=== PATIENT | female | born 1960 | race Caucasian/White ===

== ENCOUNTER 2024-06-09 20:55 | Emergency (ER) | payer OTHER, MEDICAID, MEDICARE ==
[2024-06-09] MEDS ORDERED: Sodium Chloride 0.9% 10 ML Syringe FLUSH PRN (22:05)
[2024-06-09 22:23] LABS: BASOPHILS ABSOLUTE AUTO 0.01 K/uL (0.00-0.20); BASOPHILS PERCENT AUTO 0.1 % (0.0-2.0); EOSINOPHILS ABSOLUTE AUTO 0.25 K/uL (0.00-0.50); EOSINOPHILS PERCENT AUTO 2.2 % (0.0-5.0); HEMATOCRIT 30.4 % (34.0-46.0); HEMOGLOBIN 9.4 g/dL (11.7-15.5); LYMPHOCYTES ABSOLUTE AUTO 2.29 K/uL (0.50-3.50); LYMPHOCYTES PERCENT AUTO 20.4 % (10.0-50.0); MEAN CORPUSCULAR HEMOGLOBIN 29.4 pg (28.2-33.3); MEAN CORPUSCULAR HGB CONC 30.9 g/dL (31.7-36.0); MONOCYTES ABSOLUTE AUTO 0.72 K/uL (0.00-1.00); MONOCYTES PERCENT AUTO 6.4 % (2.0-14.0); NEUTROPHILS ABSOLUTE AUTO 7.95 K/uL (1.40-7.00); NEUTROPHILS PERCENT AUTO 70.9 % (45.0-80.0); PLATELET COUNT,PLT 315 K/uL (150-350); RED CELL DISTRIBUTION WIDTH 15.6 % (11.2-14.1); WHITE BLOOD CELL COUNT,WBC 11.2 K/uL (4.0-10.2)
[2024-06-09 22:26] LABS: BILIRUBIN,URINE NEGATIVE (NEGATIVE); COLOR,URINE YELLOW; GLUCOSE,URINE NEGATIVE (NEGATIVE); KETONES,URINE TRACE mg/dL (NEGATIVE); LEUKOCYTE ESTERASE,URINE LARGE (NEGATIVE); NITRITE,URINE NEGATIVE (NEGATIVE); OCCULT BLOOD,URINE MODERATE (NEGATIVE); PROTEIN,URINE >=300 mg/dL (NEGATIVE); UROBILINOGEN,URINE 0.2 E.U./dL (0.2-1.0)
[2024-06-09 22:27] LABS: APPEARANCE,URINE SLIGHTLY CLOUDY
[2024-06-09 22:43] LABS: EPITHELIAL CELLS,URINE RARE /LPF; RBC,URINE 20-30 /HPF; WBC,URINE 75-100 /HPF
[2024-06-09 22:44] LABS: AMORPHOUS SEDIMENT,URINE MODERATE /HPF (0/HPF); BACTERIA,URINE MODERATE /HPF (NONE TO FEW); YEAST,URINE FEW /HPF (NEGATIVE)
[2024-06-09 22:48] LABS: ALANINE AMINOTRANSFERASE,ALT 11 U/L (12-78); ALBUMIN 2.9 g/dL (3.4-5.0); ALKALINE PHOSPHATASE 119 IU/L (46-116); ANION GAP 15.4 meq/L (7-15); ASPARTATE AMNIOTRANSFERASE,AST 16 U/L (15-37); BILIRUBIN TOTAL 0.3 mg/dL (0.2-1.0); BLOOD UREA NITROGEN,BUN 21 mg/dL (7-18); CALCIUM 9.3 mg/dL (8.5-10.1); CARBON DIOXIDE,CO2 22.8 mmol/L (21.0-32.0); CHLORIDE,CL 110 mmol/L (98-107); CREATININE 0.98 mg/dL (0.51-1.17); ESTIMATED GFR 65 mL/min (>=60); GLUCOSE RANDOM 124 mg/dL (70-99); POTASSIUM,K 4.2 mmol/L (3.5-5.1); PROTEIN TOTAL,TP 7.7 g/dL (6.4-8.2); SODIUM,NA 144 mmol/L (136-145)
[2024-06-09 23:20] LABS: PROTHROMBIN TIME 10.1 SEC (9.0-11.1)
[2024-06-09] MEDS ORDERED: cefTRIAXone 2 GM Vial IVPUSH SCH (23:30)
[2024-06-09 23:42] VITALS: BP 102/74; PULSE 74
== END 2024-06-10 00:05 ==
LOC: LL.ED 20:55
DX: R41.82 Altered mental status, unspecified (principal); N39.0 Urinary tract infection, site not specified; I10 Essential (primary) hypertension; E78.00 Pure hypercholesterolemia, unspecified; J44.9 Chronic obstructive pulmonary disease, unspecified; Z79.899 Other long term (current) drug therapy; Z79.891 Long term (current) use of opiate analgesic; Z88.8 Allergy status to other drugs, medicaments and biological substances; Z91.018 Allergy to other foods; Z88.2 Allergy status to sulfonamides; Z88.5 Allergy status to narcotic agent; Z88.0 Allergy status to penicillin
CPT/HCPCS: 36415; 80053; 81001; 82947; 83605; 84484; 85025; 85610; 87086; 87088; 87147; 87186; 99284; 99285

== ENCOUNTER 2024-06-16 08:35 | Emergency (ER) | payer MEDICARE, MEDICAID ==
[2024-06-16] MEDS ORDERED: Sodium Chloride 0.9% 10 ML Syringe FLUSH PRN (08:51)
[2024-06-16] MEDS ORDERED: Sodium Chloride 0.9% 500 ML IV SCH (09:00)
[2024-06-16 09:33] LABS: BILIRUBIN,URINE SMALL (NEGATIVE); COLOR,URINE YELLOW; GLUCOSE,URINE NEGATIVE (NEGATIVE); KETONES,URINE TRACE mg/dL (NEGATIVE); LEUKOCYTE ESTERASE,URINE SMALL (NEGATIVE); NITRITE,URINE NEGATIVE (NEGATIVE); OCCULT BLOOD,URINE TRACE-LYSED (NEGATIVE); PROTEIN,URINE 100 mg/dL (NEGATIVE); UROBILINOGEN,URINE 0.2 E.U./dL (0.2-1.0)
[2024-06-16 09:49] LABS: BASOPHILS ABSOLUTE AUTO 0.01 K/uL (0.00-0.20); BASOPHILS PERCENT AUTO 0.1 % (0.0-2.0); EOSINOPHILS ABSOLUTE AUTO 0.24 K/uL (0.00-0.50); EOSINOPHILS PERCENT AUTO 3.6 % (0.0-5.0); HEMATOCRIT 31.2 % (34.0-46.0); HEMOGLOBIN 9.3 g/dL (11.7-15.5); LYMPHOCYTES ABSOLUTE AUTO 1.39 K/uL (0.50-3.50); LYMPHOCYTES PERCENT AUTO 20.6 % (10.0-50.0); MEAN CORPUSCULAR HEMOGLOBIN 29.1 pg (28.2-33.3); MEAN CORPUSCULAR HGB CONC 29.8 g/dL (31.7-36.0); MEAN CORPUSCULAR VOLUME 97.5 fL (84.0-98.0); MONOCYTES ABSOLUTE AUTO 0.44 K/uL (0.00-1.00); MONOCYTES PERCENT AUTO 6.5 % (2.0-14.0); NEUTROPHILS ABSOLUTE AUTO 4.67 K/uL (1.40-7.00); NEUTROPHILS PERCENT AUTO 69.2 % (45.0-80.0); PLATELET COUNT,PLT 151 K/uL (150-350); RED CELL DISTRIBUTION WIDTH 16.3 % (11.2-14.1); WHITE BLOOD CELL COUNT,WBC 6.8 K/uL (4.0-10.2)
[2024-06-16 09:53] LABS: APPEARANCE,URINE CLOUDY
[2024-06-16 09:54] LABS: HYALINE CASTS,URINE FEW
[2024-06-16 10:07] LABS: ALANINE AMINOTRANSFERASE,ALT 12 U/L (12-78); ALBUMIN 2.5 g/dL (3.4-5.0); ALKALINE PHOSPHATASE 91 IU/L (46-116); ANION GAP 13.3 meq/L (7-15); ASPARTATE AMNIOTRANSFERASE,AST 28 U/L (15-37); BILIRUBIN TOTAL 0.2 mg/dL (0.2-1.0); BLOOD UREA NITROGEN,BUN 16 mg/dL (7-18); CALCIUM 8.6 mg/dL (8.5-10.1); CARBON DIOXIDE,CO2 26.2 mmol/L (21.0-32.0); CHLORIDE,CL 109 mmol/L (98-107); CREATININE 0.79 mg/dL (0.51-1.17); ESTIMATED GFR 84 mL/min (>=60); GLUCOSE RANDOM 100 mg/dL (70-99); MAGNESIUM 2.2 mg/dL (1.8-2.4); POTASSIUM,K 3.5 mmol/L (3.5-5.1); PROTEIN TOTAL,TP 6.8 g/dL (6.4-8.2); SODIUM,NA 145 mmol/L (136-145)
[2024-06-16 10:09] LABS: LACTIC ACID 1.3 mmol/L (0.4-2.0)
[2024-06-16 10:22] LABS: PROTHROMBIN TIME 10.1 SEC (9.0-11.1); PTT,PARTIAL THROMBOPLSTIN TIME 24.5 SEC (23.6-29.8)
== END 2024-06-16 10:37 ==
LOC: LL.ED 08:35
DX: R41.82 Altered mental status, unspecified (principal); T83.511A Infection and inflammatory reaction due to indwelling urethral catheter, initial encounter; I10 Essential (primary) hypertension; E78.00 Pure hypercholesterolemia, unspecified; J44.9 Chronic obstructive pulmonary disease, unspecified; Z79.899 Other long term (current) drug therapy; Z79.82 Long term (current) use of aspirin; Z79.891 Long term (current) use of opiate analgesic; Z91.048 Other nonmedicinal substance allergy status; Z88.5 Allergy status to narcotic agent; Z88.8 Allergy status to other drugs, medicaments and biological substances; Z91.018 Allergy to other foods; Z88.2 Allergy status to sulfonamides; Z88.0 Allergy status to penicillin
CPT/HCPCS: 36415; 70450; 71045; 80053; 81001; 83605; 83735; 84484; 85025; 85610; 85730; 87040; 87086; 87088; 93005; 99285

== ENCOUNTER 2024-07-28 09:46 | Emergency (ER) | payer MEDICARE, MEDICAID ==
[2024-07-28 10:11] LABS: BASOPHILS ABSOLUTE AUTO 0.01 K/uL (0.00-0.20); BASOPHILS PERCENT AUTO 0.1 % (0.0-2.0); EOSINOPHILS ABSOLUTE AUTO 0.15 K/uL (0.00-0.50); EOSINOPHILS PERCENT AUTO 1.9 % (0.0-5.0); HEMATOCRIT 31.4 % (34.0-46.0); HEMOGLOBIN 9.5 g/dL (11.7-15.5); LYMPHOCYTES ABSOLUTE AUTO 1.14 K/uL (0.50-3.50); LYMPHOCYTES PERCENT AUTO 14.2 % (10.0-50.0); MEAN CORPUSCULAR HEMOGLOBIN 27.5 pg (28.2-33.3); MEAN CORPUSCULAR HGB CONC 30.3 g/dL (31.7-36.0); MONOCYTES PERCENT AUTO 7.5 % (2.0-14.0); NEUTROPHILS ABSOLUTE AUTO 6.15 K/uL (1.40-7.00); NEUTROPHILS PERCENT AUTO 76.3 % (45.0-80.0); PLATELET COUNT,PLT 267 K/uL (150-350); RED BLOOD CELL COUNT 3.45 M/uL (3.77-5.09); RED CELL DISTRIBUTION WIDTH 15.6 % (11.2-14.1); WHITE BLOOD CELL COUNT,WBC 8.1 K/uL (4.0-10.2)
[2024-07-28 10:27] LABS: APPEARANCE,URINE SLIGHTLY CLOUDY; BILIRUBIN,URINE SMALL (NEGATIVE); COLOR,URINE YELLOW; GLUCOSE,URINE NEGATIVE (NEGATIVE); KETONES,URINE TRACE mg/dL (NEGATIVE); LEUKOCYTE ESTERASE,URINE SMALL (NEGATIVE); NITRITE,URINE POSITIVE (NEGATIVE); OCCULT BLOOD,URINE TRACE-INTACT (NEGATIVE); PROTEIN,URINE >=300 mg/dL (NEGATIVE)
[2024-07-28 10:37] LABS: ALANINE AMINOTRANSFERASE,ALT 15 U/L (12-78); ALKALINE PHOSPHATASE 107 IU/L (46-116); ANION GAP 10.9 meq/L (7-15); ASPARTATE AMNIOTRANSFERASE,AST 15 U/L (15-37); BILIRUBIN TOTAL 0.5 mg/dL (0.2-1.0); BLOOD UREA NITROGEN,BUN 18 mg/dL (7-18); CARBON DIOXIDE,CO2 25.1 mmol/L (21.0-32.0); CHLORIDE,CL 106 mmol/L (98-107); CREATININE 0.78 mg/dL (0.51-1.17); GLUCOSE RANDOM 112 mg/dL (70-99); POTASSIUM,K 3.6 mmol/L (3.5-5.1); PROTEIN TOTAL,TP 7.9 g/dL (6.4-8.2); SODIUM,NA 142 mmol/L (136-145)
[2024-07-28 10:38] LABS: ESTIMATED GFR 85 mL/min (>=60)
[2024-07-28 10:38] LABS: RBC,URINE 0-5 /HPF
[2024-07-28 10:39] LABS: BACTERIA,URINE MODERATE /HPF (NONE TO FEW); EPITHELIAL CELLS,URINE RARE /LPF; WBC,URINE >100 /HPF
[2024-07-28 11:00] LABS: CALCIUM 10.9 mg/dL (8.5-10.1); PRO B-TYPE NATRIUR PEPT,BNPPRO 27183 pg/mL (0-125)
[2024-07-28] MEDS ORDERED: Naloxone 0.4 MG/ML SDV IVPUSH PRN (11:07)
[2024-07-28] MEDS: fentaNYL 50 MCG/ML SDV IVPUSH ONE ×2 (11:10→11:25)
[2024-07-28] MEDS: Sodium Chloride 0.9% 10 ML Syringe FLUSH PRN (11:11)
[2024-07-28 12:30] VITALS: PULSE 93
[2024-07-28] MEDS: Ketorolac 15 MG/ML SDV IVPUSH ONE (12:47)
[2024-07-28 13:30] VITALS: BP 125/89
[2024-07-28] MEDS: cefTRIAXone 1 GM Vial IVPUSH ONE (13:32)
[2024-07-28] MEDS: Take Home: Levofloxacin 500 MG Tab, 3 Tab Pack PO ONE (13:41)
[2024-07-28] MEDS: Take Home: Ketorolac 10 MG Tab, 4 Tab Pack PO ONE (13:41)
== END 2024-07-28 14:10 ==
LOC: LL.ED 09:46
DX: N39.0 Urinary tract infection, site not specified (principal); N12 Tubulo-interstitial nephritis, not specified as acute or chronic; N20.0 Calculus of kidney; N21.0 Calculus in bladder
CPT/HCPCS: 36415; 51702; 71250; 74176; 80053; 81001; 83605; 83880; 85025; 87086; 96374; 96375; 99284; 99284-25; A9270-GY; J0696; J1885; J3010; J3490

== ENCOUNTER 2024-07-29 03:20 | Emergency (ER) | payer MEDICARE, MEDICAID ==
[2024-07-29] MEDS ORDERED: Sodium Chloride 0.9% 10 ML Syringe FLUSH PRN (03:25)
[2024-07-29] MEDS ORDERED: EPINEPHrine 1:10,000 1 MG/10 ML Syringe IVPUSH ONE ×3 (03:39→03:45)
[2024-07-29] MEDS ORDERED: Lactated Ringers 1,000 ML IV ONE (03:39)
== END 2024-07-29 13:35 | disposition expired ==
LOC: LL.ED 03:20
DX: I46.9 Cardiac arrest, cause unspecified (principal); I10 Essential (primary) hypertension; J44.9 Chronic obstructive pulmonary disease, unspecified; E78.00 Pure hypercholesterolemia, unspecified; Z86.73 Personal history of transient ischemic attack (TIA), and cerebral infarction without residual deficits; Z79.02 Long term (current) use of antithrombotics/antiplatelets; Z79.82 Long term (current) use of aspirin; Z79.899 Other long term (current) drug therapy; Z88.2 Allergy status to sulfonamides; Z88.5 Allergy status to narcotic agent; Z88.8 Allergy status to other drugs, medicaments and biological substances; Z88.7 Allergy status to serum and vaccine; Z88.0 Allergy status to penicillin; Z91.048 Other nonmedicinal substance allergy status
CPT/HCPCS: 92950; 99285; J0171; J7120